=== PATIENT | female | born 1955 | race Caucasian/White ===

== ENCOUNTER 2023-06-02 07:30 | Emergency (ER) | payer BC, MEDICARE ==
[2023-06-02 08:38] LABS: BASOPHILS ABSOLUTE AUTO 0.04 K/uL (0.00-0.10); BASOPHILS PERCENT AUTO 0.4 % (0.1-1.3); EOSINOPHILS ABSOLUTE AUTO 0.07 K/uL (0.00-0.40); EOSINOPHILS PERCENT AUTO 0.7 % (0.0-5.4); HEMATOCRIT 39.5 % (34.3-46.0); HEMOGLOBIN 12.9 g/dL (11.2-15.5); IMMATURE GRAN ABSOLUTE AUTO 0.13 K/uL (0.00-0.23); IMMATURE GRAN PERCENT AUTO 1.3 % (0.0-0.7); LYMPHOCYTES ABSOLUTE AUTO 1.13 K/uL (0.8-3.3); LYMPHOCYTES PERCENT AUTO 11.2 % (11.4-47.7); MEAN CORPUSCULAR HEMOGLOBIN 28.4 pg (31.6-35.5); MEAN CORPUSCULAR HGB CONC 32.7 g/dL (31.6-35.5); NEUTROPHILS ABSOLUTE AUTO 8.19 K/uL (1.0-7.6); NEUTROPHILS PERCENT AUTO 81.4 % (40.0-78.1); PLATELET COUNT,PLT 235 K/uL (130-375); RED BLOOD CELL COUNT 4.54 M/uL (3.77-5.24); WHITE BLOOD CELL COUNT,WBC 10.1 K/uL (3.2-11.0)
[2023-06-02 08:57] LABS: ANION GAP 14.8 mmol/L (5.0-14.0); C-REACTIVE PROTEIN 23.8 mg/dL (0.0-0.3); CALCIUM 8.5 mg/dL (8.5-10.1); CREATININE 0.8 mg/dL (0.6-1.0); EST CRCL DRUG DOSING (CG) 55.45 mL/min; POTASSIUM,K 3.8 mmol/L (3.6-5.2)
[2023-06-02 08:59] LABS: CORONAVIRUS COVID-19 NAA NEGATIVE (NEGATIVE); INFLUENZA A NAA NEGATIVE (NEGATIVE); INFLUENZA B NAA NEGATIVE (NEGATIVE); RESPIRATORY SYNCYTIAL VIR NAA NEGATIVE (NEGATIVE)
== END 2023-06-02 09:28 | disposition home or self-care (01) ==
LOC: JP.ED 07:30
DX: J21.8 Acute bronchiolitis due to other specified organisms (principal); J18.9 Pneumonia, unspecified organism; Z88.8 Allergy status to other drugs, medicaments and biological substances; Z20.822 Contact with and (suspected) exposure to COVID-19
CPT/HCPCS: 0241U; 36415; 71046; 80048; 84145; 85025; 86140; 99285